=== PATIENT | male | born 1990 | race Caucasian/White ===

== ENCOUNTER 2018-01-15 20:47 | Emergency (ER) | payer MEDICAID, OTHER ==
[2018-01-15 20:54] VITALS: RESP 20
--- NOTE | 2018-01-15 21:03 | C.PDOC ---
History Of Present Illness 27 year old male presents to the ED complaining of heroin and cocaine withdrawals. Reports last use was at 0900 today. Complains of myalgias and nausea. Denies use of any other drugs. Time Seen by Provider: 01/15/18 20:57 Chief Complaint (Nursing): Medical Clearance History Per: Patient History/Exam Limitations: no limitations Onset/Duration Of Symptoms: Hrs Current Symptoms Are (Timing): Still Present Suicide/Self Injury Attempted (Context): None Modifying Factor(s): Narcotics, Cocaine Past Medical History Reviewed: Historical Data, Nursing Documentation, Vital Signs Vital Signs: Last Vital Signs Temp 98.4 F 01/15/18 20:50 Pulse 67 01/15/18 20:50 Resp 20 01/15/18 20:50 BP 142/75 01/15/18 20:50 Pulse Ox 98 01/15/18 20:50 - Medical History PMH: No Chronic Diseases Denies: Chronic Kidney Disease Surgical History: Appendectomy - [facility] Procedures CENTRAL VENOUS CATHETER PLACEMENT WITH GUIDANCE (11/09/13) DESTRUCT-HIP LESION NEC (11/09/13) DX ULTRASOUND-HEART (11/09/13) HIP JOINT BIOPSY (11/09/13) Family History: States: No Known Family Hx - Social History Hx Tobacco Use: Yes Hx Alcohol Use: No Hx Substance Use: Yes - Immunization History Hx Tetanus Toxoid Vaccination: No Hx Influenza Vaccination: No Hx Pneumococcal Vaccination: No Review Of Systems Except As Marked, All Systems Reviewed And Found Negative. Constitutional: Positive for: Other (myalgias ) Gastrointestinal: Positive for: Nausea Psych: Positive for: Withdrawal Physical Exam - Physical Exam Appears: Non-toxic Skin: Warm, Dry, No Rash Head: Atraumatic, Normacephalic Eye(s): bilateral: Normal Inspection Nose: Normal Oral Mucosa: Moist Cardiovascular: Rhythm Regular Respiratory: Other (NARD) Extremity: Normal ROM Neurological/Psych: Oriented x3, Normal Speech, Other (+ mild withdrawal, interacting ) Gait: Steady ED Course And Treatment O2 Sat by Pulse Oximetry: 98 (RA) Pulse Ox Interpretation: Normal Progress Note: Patient treated with Toradol and Zofran. Reevaluation Time: 21:02 Reassessment Condition: Improved (PT CLEAR SPEECH AND THOUGHT, STEADY GAIT. AO3, NO S/S ACUTE INTOX. NO ACTIVE VOMITING IN ER. MEDICALLY CLEAR FOR INCARCERATION.) Disposition Counseled Patient/Family Regarding: Diagnosis, Need For Followup - Disposition Referrals: YOUR,PMD [Other] Disposition: HOME/ ROUTINE Disposition Time: 21:01 Condition: IMPROVED Additional Instructions: MEDICALLY CLEAR FOR INCARCERATION. Instructions: Drug Withdrawal (DC) Forms: [facility] (Vietnamese) - Clinical Impression Clinical Impression: Drug withdrawal - Scribe Statement The provider has reviewed the documentation as recorded by the Scribe Tangela Mirza All medical record entries made by the Tejasibaramis were at my direction and personally dictated by me. I have reviewed the chart and agree that the record accurately reflects my personal performance of the history, physical exam, medical decision making, and the department course for this patient. I have also personally directed, reviewed, and agree with the discharge instructions and disposition.
[2018-01-15 21:31] VITALS: BP 140/78; PULSE 82; TEMP 98; O2SAT 97
== END 2018-01-15 21:30 | disposition home or self-care (01) ==
LOC: C.ER 20:47
DX: F19.239 Other psychoactive substance dependence with withdrawal, unspecified (principal)
CPT/HCPCS: 96372; 99282; J1885